=== PATIENT | female | born 1975 ===

== ENCOUNTER → 2018-04-19 | Day surgery (SDC) | payer OTHER ==
[~2018-04-19] MED LIST: B COMPLEX WITH1 EACH PO; FIBER500 MG PO; ONE DAILY1 EAC1 PO; VIT C-ROSE HIP500 MG PO
== END | disposition home or self-care (01) ==
LOC: ADM 04-13 09:15 → CIR.AMB 09:15
DX: N84.0 Polyp of corpus uteri (principal)